=== PATIENT | female | born 1945 | race Caucasian/White ===

== ENCOUNTER 2022-09-24 06:06 | Day surgery (SDC) | payer MEDICARE, SELFPAY ==
[2022-09-24 06:40] VITALS: BP 156/76; PULSE 86; RESP 16; TEMP 36.6; O2SAT 99
[2022-09-24] MEDS: Tropicam./Phenyleph. (1/2.5%) 5 ML BTL OS ×3 (06:52→07:03)
--- NOTE | 2022-09-24 07:04 | ANES.PREOP_ITS ---
General Info Date of Service Date Performed: 09/24/22 Height: 5 ft 1 in Weight: 49.5 kg Body Mass Index (BMI): 20.6 Surgical Procedure: Operation Date: 09/24/22 07:40 Proposed Procedure Side Surgeon p Cataract Extraction with IOL Implant Left Omer Lacy MD Meds Allergies and Home Medications Allergies Allergy/AdvReac Type Severity Reaction Status Date / Time No Known Allergies Allergy Unverified 09/24/22 06:47 Home Medication Medication Instructions Recorded acetaminophen 650 mg 1,300 mg PO Q8H PRN 09/21/22 tablet,extended release amlodipine 10 mg tablet 10 mg PO DAILY 09/21/22 latanoprost 0.005 % eye drops 1 drp ophthalmic (eye) HS 09/21/22 multivitamin 1 tab PO DAILY 09/21/22 red yeast rice 600 mg capsule 600 mg PO DAILY 09/21/22 Current Visit Medications: Current Medications Generic Name Dose Route Start Last Admin Trade Name Freq PRN Reason Stop Dose Admin Acetaminophen 1,000 mg 09/24/22 06:00 Acetaminophen 500 Mg Tab PO Q4H PRN PRN Miscellaneous Medication 0 ml 09/24/22 06:00 09/24/22 07:03 Tropicam./Phenyleph. (1/2.5%) 5 Ml Btl OS 1 drp DIRECTED SOLEDAD Administration Miscellaneous Medication 0 ml 09/24/22 06:00 Prednisolone 1%, Moxifloxacin 0.5%, Nepafenac 0.1% 5ml Btl OS DIRECTED SOLEDAD Tetracaine HCl 0 ml 09/24/22 06:00 Tetracaine 0.5% 4 Ml Btl OS DIRECTED SOLEDAD PFSH Active Problems Active Problems: Problem Status Onset Code Nuclear sclerotic cataract of left eye H25.12 Medical History Medical History (Updated 09/24/22 @ 06:47 by Isabel Felipe) Benign essential hypertension Edentulism Hx of glaucoma Raynauds disease Traumatic amputation of finger Surgical History Surgical History History of lumbosacral spine surgery History of mandibular surgery Per H&P related to gingivitis Hx of appendectomy Hx of hernia repair Hx of hysterectomy Tobacco Smoking/Tobacco Use Status: Former Tobacco Use Alcohol Alcohol Intake: current Alcohol type: wine Substance Use Substance use: Never Substance use type: does not use Vital Signs and Lab Results Vital Signs Most Recent Vital Signs in EMR: Most Recent Vital Signs Temp Pulse Resp BP Pulse Ox 36.6 C 86 16 156/76 H 99 09/24/22 06:40 09/24/22 06:40 09/24/22 06:40 09/24/22 06:40 09/24/22 06:40 Lab Results Blood Type / Crossmatch: No Data to Display Complete Blood Count: No Data to Display Complete Metabolic Panel: 2 No Data to Display Liver Function Panel: No Data to Display Coagulation Panel: No Data to Display Cardiac Panel: No Data to Display Arterial Blood Gas: No Data to Display Venous Blood Gas: No Data to Display Pancreas Panel: No Data to Display Thyroid Panel: No Data to Display Infectious Disease: No Data to Display Blood Cultures: No Data to Display Toxicology Panel: No Data to Display Anesthesia Assessment and Plan Anesthesia History Personal History: No History of Anesthesia Complications Family History: No Family History of Anesthesia Complications Exercise Tolerance Exercise Tolerance: Metabolic Equivalents>4 Pertinent Negatives Pertinent Negatives: No Symptoms of GERD, No Major Cardiovascular Symptoms or Complaints and No Major Pulmonary Symptoms or Complaints Cardiac & Pulmonary Exam Cardiac Exam: Normal S1/S2 Heart Sounds Pulmonary Exam: Clear Bilateral Breath Sounds Implantable Cardiac Device Does patient have a Pacemaker or an ICD?: No Airway Exam Known Difficult Airway: No Mallampati Class: 2 Mouth Opening: Normal (> 3cm) Thyromental Distance: Greater than 3 cm Neck Range of Motion: Full ROM Neck Circumference: Normal Teeth Condition: Removable Dentures/Plates Upper and Removable Dentures/Plates Lower ASA Classification ASA Score: ASA 2 Emergency Case?: No NPO Status NPO Status: NPO Clears >2 hours, Solids >8 hours Anesthesia Plan Resuscitation Status: Full Code Anesthesia Technique: MAC Anesthesia Airway Planned: Natural Airway Monitors Used: Standard Monitors
[2022-09-24 07:06] VITALS: BMI 20.6
[2022-09-24] MEDS: Tetracaine 0.5% 4 ML BTL OS (07:28)
[2022-09-24] MEDS: Lidocaine 1% Pres-Free 5 ML VIAL (07:36)
[2022-09-24] MEDS: Balanced Salt Soln.-PLUS 500 ML BAG (07:37)
[2022-09-24] MEDS: Phenylephrine/Lidocaine (15/10) MG/ML 1 ML VIAL (07:38)
[2022-09-24] MEDS: Povidone-Iodine Ophth 30 ML BTL (07:38)
[2022-09-24] MEDS: Duovisc Viscoelastic System EACH 1 EACH (07:39)
[2022-09-24 08:05] VITALS: BP 131/82; PULSE 85; RESP 18; TEMP 36.6; O2SAT 93
--- NOTE | 2022-09-24 08:13 | W.PM.DSUDISC ---
Date of service: 09/24/22 Time of Service: 08:13 Discharge Plan Disposition Patient Disposition: Home Discharge Details Attending Provider: Omer Lacy Primary Care Provider: Soheila Law Home Meds and New Rx's Prescriptions: No Action multivitamin Tablet 1 tab PO DAILY latanoprost 0.005 % Drops 1 drp ophthalmic (eye) HS acetaminophen 650 mg Tablet Extended Release 1,300 mg PO Q8H PRN amlodipine 10 mg Tablet 10 mg PO DAILY red yeast rice 600 mg Capsule 600 mg PO DAILY Discharge Instructions Stand Alone Forms: Post-op Topical Cataract, Josef Acunaey (DSU) Discharge Orders Discharge Orders: Discharge Order (Routine); Ordered 09/24/22 Ordered By: Omer Lacy DS: Diagnosis Discharge Diagnosis (1) Nuclear sclerotic cataract of left eye: Status: Resolved (2) Primary open angle glaucoma (POAG) of left eye, mild stage: Status: Chronic
--- NOTE | 2022-09-24 08:15 | W.PM.OP ---
Date of service: 09/24/22 Time of Service: 08:15 Operative Note Operative Note DATE OF PROCEDURE: 09/24/22 PRE-OP DIAGNOSIS: Nuclear cataract, left eye Primary open-angle glaucoma, left eye, mild stage PROCEDURE: 1. Cataract extraction using phacoemulsification with intraocular lens implant, left eye 2. Insertion of multiple anterior segment aqueous drainage devices (Glaukos iStent inject x 2) into trabecular meshwork, left eye SURGEON: Omer Lacy ANESTHESIA TYPE: Local By Surgeon and MAC Refer to Anesthesia Record ESTIMATED BLOOD LOSS: 0 PATHOLOGY: none sent COMPLICATIONS: None Patient was transported to: same day Patient's condition: stable Implants: 1. Edin and Edin Vision Tecnis Eyhance intraocular lens 2. Glaukos iStent inject trabecular micro-bypass stent x 2 Indications: 1. Progressive decreased vision due to cataract, left eye 2. Primary open angle glaucoma, left eye Procedure Description: CATARACT SURGERY OPERATIVE REPORT PREOPERATIVE DIAGNOSIS: Nuclear cataract, left eye primary open-angle glaucoma, left eye, mild stage POSTOPERATIVE DIAGNOSIS: Same OPERATION: 1. Cataract extraction using phacoemulsification with posterior chamber intraocular lens implant, left eye. 2. Insertion of multiple anterior segment aqueous drainage devices (Glaukos iStent inject x 2) into trabecular meshwork, left eye IOL: IOL Healthcare Science Specialist/Model: [employer]Safe Shepherd / JAYLON Tecnis [id number] IOL Power: + 22.5 diopters IOL Serial Number: [id number] Optic Diameter: 6.0mm Haptic/Overall Diameter: 13.0mm PHACO INFO: Lion Ziarcourion Vision System with OZil and Active Fluidics Cumulative Dispersed Energy (CDE): 17.87 seconds TRABECULAR MICRO-BYPASS STENT INFO: Glaukos iStent inject x 2 Reference Number: [id number] Serial Number: [id number] SURGEON: Omer Lacy MD, EDEL ANESTHESIA: Monitored Anesthesia Care (MAC), with local sub-tenon's anesthetic infiltration COMPLICATIONS: None SPECIMENS: None INDICATIONS FOR PROCEDURE: The patient is a 77-year-old lady with history of mild stage primary open-angle glaucoma who has developed asymptomatic dense nuclear cataract in the left eye. The option of cataract surgery was offered to the patient and she wished to proceed. PROCEDURE: The correct surgical eye was identified and marked as the left eye and the pupil was dilated in the preoperative area using mydriatics and cycloplegics. The dilated pupil size was 7.0 mm. Oral sedation was administered in the form of one half of an Imprimis MKO Melt (midazolam 3mg/ketamine 25mg/ondansetron 2mg). The patient was brought to the operating room where cardiopulmonary monitoring was instituted and surgical time-out was performed, confirming the correct operative eye and IOL power. Topical anesthesia was administered and ophthalmic povidone-iodine 5% was instilled into the conjunctival fornices. Lidocaine gel was applied to the cornea and the luli-ocular area was prepped with Betadine 10% solution and draped in the usual sterile fashion for intraocular surgery, including an aperture drape. A Tegaderm transparent film dressing was cut in half and used to cover the lashes and lid margins. Care was taken to sequester the lashes and lid margins under the Tegaderm dressing. A lid speculum was placed between the lids of the operative eye and the Lion LuxOR Revalia operating microscope was maneuvered into position. Miguel scissors were then used to make a conjunctival buttonhole approximately 6mm posterior to the limbus in the inferonasal quadrant. Blunt dissection was carried out to expose bare sclera, and a blunt-tipped sub-tenon?s anesthesia cannula was introduced and passed posteriorly along the globe where non-preserved plain lidocaine was injected into posterior sub-Tenon?s space. A sideport knife was used to make a paracentesis port superior/superiortemporally. Intraocular phenylephrine/lidocaine was injected into the anterior chamber. The anterior chamber was then filled with viscoelastic. A 2.4mm keratome knife was used to create a half-thickness groove at the limbus and then to construct a three-plane near-clear corneal tunnel extending 2.0mm into clear cornea in the temporal position. . A flap was raised on the anterior capsule and capsulorhexis forceps were used to complete a continuous curvilinear capsulorhexis of 5.0 mm. Balanced salt solution was then used to perform cortical cleaving hydrodissection and nuclear hydrodelineation until the lens could be freely rotated within the capsular bag. The lens nucleus was then disassembled and removed within the capsular bag and iris plane using phacoemulsification. Residual cortical material was removed using the 45-degree angled silicone I/A tip with 0.3mm port. The posterior capsule was carefully polished to remove as much residual lens epithelial cells as safely possible. The capsular bag was then inflated and the anterior chamber deepened with viscoelastic. The lens implant described above was inserted into the capsular bag using the Edin and Edin Simplicity Injector. A Kuglen hook was used to dial the IOL into position. The anterior chamber was then slightly over-filled with viscoelastic. The microsope and the patient's head were tilted into the ideal position for viewing of the anterior chamber angle. Viscoelastic was placed on the cornea followed by a surgical gonionlens, and the anterior chamber angle landmarks were identified. The SmartSynch iStent inject handpiece was introduced into the anterior chamber and the insertion sleeve was retracted once the injector was distal to the pupillary margin. The trocar was advanced through the central portion of the trabecular meshwork and into the back wall of Schlemm's canal in the superiornasal quadrant, with care taken to ensure the micro-insertion tube was perpendicular to the trabecular meshwork. The trabecular meshwork was lightly dimpled and the stent was injected without difficulty. The same procedure was then performed in the inferiornasal quradrant. Both stents were then examined and noted to be in good position within the trabecular meshwork. A mild amount of blood reflux was present through both stent apertures. The microscope and the patients head were returned to the normal coaxial position. Viscoelatic was then removed from the anterior chamber using the I/A handpiece. The lens implant was noted to center nicely within the capsular bag. The incisions were stromally hydrated, and the anterior chamber was reformed using BSS. Then 0.5cc of moxifloxacin 1.0mg/ml were injected into the capsular bag and anterior chamber. The incisions were checked with a Weck spear and found to be secure. Several drops of ophthalmic povidone-iodine 5% were then applied to the eye followed by two drops of Imprimis combination prednisolone/moxifloxacin/nepafenac solution. The drapes were removed and a clear plastic protective eye shield was placed over the eye. The patient was then returned to [facility] Day Surgery in stable condition.
[2022-09-24] MEDS: Acetaminophen 500 MG TAB 1000 MG PO (08:16)
--- NOTE | 2022-09-24 08:17 | W.ANESPOSTOP ---
Postoperative Evaluation Date, Time and Location Date Performed: 09/24/22 Time Performed: 08:10 Patient Location: Day Surgery Unit Vital Signs Most Recent Imported Vital Signs: Most Recent Vital Signs Temp Pulse Resp BP Pulse Ox 36.6 C 85 18 131/82 93 09/24/22 08:05 09/24/22 08:05 09/24/22 08:05 09/24/22 08:05 09/24/22 08:05 Pain Score Most Recent Pain Score: Most Recent Pain Score Pain Level 0 09/24/22 08:05 Assessment Mental Status: Awake (Alert & Oriented to Patient Baseline) Airway and Respiratory Function: Patent airway with normal (patient baseline) respiratory exam Cardiovascular Function: Hemodynamically Stable Hydration Status: Adequately Hydrated Nausea & Vomiting: No Nausea or Vomiting Pain: Pt. Denies Any Pain Peripheral Nerve Block: Patient did not receive a nerve block
[2022-09-24 08:31] VITALS: BP 113/67; PULSE 79; RESP 18; TEMP 36.6; O2SAT 94
== END 2022-09-24 08:41 | disposition home or self-care (01) ==
LOC: SUR 06:07
PROVIDERS: PCP Nurse Practitioner Family; Visit Provider Ophthalmology
PROC: (CPT 66991; principal; 2022-09-24 07:30)
DX: H25.12 Age-related nuclear cataract, left eye (principal); H40.1121 Primary open-angle glaucoma, left eye, mild stage
CPT/HCPCS: 66991; V2632; C1783

== ENCOUNTER 2022-10-08 10:36 | Day surgery (SDC) | payer MEDICARE, SELFPAY ==
[2022-10-08 11:56] VITALS: BP 166/75; PULSE 65; RESP 16; TEMP 36.2; O2SAT 98
[2022-10-08] MEDS: Tropicam./Phenyleph. (1/2.5%) 5 ML BTL OD ×3 (12:13→12:23)
[2022-10-08 12:39] VITALS: BMI 20.7
--- NOTE | 2022-10-08 12:39 | W.ANESPRE ---
General Info Date of Service Date Performed: 10/08/22 Height: 5 ft 1 in Weight: 49.8 kg Body Mass Index (BMI): 20.7 Surgical Procedure: Operation Date: 10/08/22 14:40 Proposed Procedure Side Surgeon p Cataract Extraction with IOL Implant w/Glaucoma Stent Right Omer Lacy MD Meds Allergies and Home Medications Allergies Allergy/AdvReac Type Severity Reaction Status Date / Time No Known Allergies Allergy Unverified 10/08/22 11:51 Home Medication Medication Instructions Recorded acetaminophen 650 mg 1,300 mg PO Q8H PRN 09/21/22 tablet,extended release amlodipine 10 mg tablet 10 mg PO DAILY 09/21/22 latanoprost 0.005 % eye drops 1 drp ophthalmic (eye) HS 09/21/22 multivitamin 1 tab PO DAILY 09/21/22 red yeast rice 600 mg capsule 600 mg PO DAILY 09/21/22 Current Visit Medications: Current Medications Generic Name Dose Route Start Last Admin Trade Name Freq PRN Reason Stop Dose Admin Acetaminophen 1,000 mg 10/08/22 06:30 Acetaminophen 500 Mg Tab PO Q4H PRN PRN Miscellaneous Medication 0 ml 10/08/22 06:30 Prednisolone 1%, Moxifloxacin 0.5%, Nepafenac 0.1% 5ml Btl OD DIRECTED SOLEDAD Miscellaneous Medication 0 ml 10/08/22 06:30 10/08/22 12:23 Tropicam./Phenyleph. (1/2.5%) 5 Ml Btl OD 1 drp DIRECTED SOLEDAD Administration Tetracaine HCl 0 ml 10/08/22 06:30 Tetracaine 0.5% 4 Ml Btl OD DIRECTED SOLEDAD PFSH Active Problems Active Problems: Problem Status Onset Code Primary open angle glaucoma (POAG) of right eye, mild stage H40.1111 Nuclear age-related cataract, right eye H25.11 Primary open angle glaucoma (POAG) of left eye, mild stage H40.1121 Nuclear sclerotic cataract of left eye H25.12 Medical History Medical History Benign essential hypertension Edentulism Hx of glaucoma Raynauds disease Traumatic amputation of finger Surgical History Surgical History History of lumbosacral spine surgery History of mandibular surgery Per H&P related to gingivitis Hx of appendectomy Hx of hernia repair Hx of hysterectomy Tobacco Smoking/Tobacco Use Status: Former Tobacco Use Alcohol Alcohol Intake: current Alcohol intake frequency: 0-2 drinks per day Alcohol type: wine Substance Use Substance use: Never Substance use type: does not use Details: glass of wine last night, 10/07/22 Vital Signs and Lab Results Vital Signs Most Recent Vital Signs in EMR: Most Recent Vital Signs Temp Pulse Resp BP Pulse Ox 36.2 C L 65 16 166/75 H 98 10/08/22 11:56 10/08/22 11:56 10/08/22 11:56 10/08/22 11:56 10/08/22 11:56 Lab Results Blood Type / Crossmatch: No Data to Display Complete Blood Count: No Data to Display Complete Metabolic Panel: No Data to Display Liver Function Panel: No Data to Display Coagulation Panel: No Data to Display Cardiac Panel: No Data to Display Arterial Blood Gas: No Data to Display Venous Blood Gas: No Data to Display Pancreas Panel: No Data to Display Thyroid Panel: No Data to Display Infectious Disease: No Data to Display Blood Cultures: No Data to Display Toxicology Panel: No Data to Display Anesthesia Assessment and Plan Anesthesia History Personal History: No History of Anesthesia Complications Family History: No Family History of Anesthesia Complications Exercise Tolerance Exercise Tolerance: Metabolic Equivalents>4 Pertinent Negatives Pertinent Negatives: No Symptoms of GERD, No Major Cardiovascular Symptoms or Complaints, No Major Pulmonary Symptoms or Complaints and No History of CVA/TIA Cardiac & Pulmonary Exam Cardiac Exam: Normal S1/S2 Heart Sounds Pulmonary Exam: Clear Bilateral Breath Sounds Implantable Cardiac Device Does patient have a Pacemaker or an ICD?: No Airway Exam Known Difficult Airway: No Mallampati Class: 2 Mouth Opening: Normal (> 3cm) Thyromental Distance: Greater than 3 cm Neck Range of Motion: Full ROM Neck Circumference: Normal Teeth Condition: Removable Dentures/Plates Upper and Removable Dentures/Plates Lower ASA Classification ASA Score: ASA 3 Emergency Case?: No NPO Status NPO Status: NPO Clears >2 hours, Solids >8 hours Anesthesia Plan Resuscitation Status: Full Code Anesthesia Technique: MAC Anesthesia Airway Planned: Natural Airway Monitors Used: Standard Monitors
[2022-10-08] MEDS: Tetracaine 0.5% 4 ML BTL OD (12:48)
[2022-10-08] MEDS: Duovisc Viscoelastic System EACH 1 EACH (12:58)
[2022-10-08] MEDS: Balanced Salt Soln.-PLUS 500 ML BAG (12:58)
[2022-10-08] MEDS: Povidone-Iodine Ophth 30 ML BTL (13:00)
[2022-10-08] MEDS: Phenylephrine/Lidocaine (15/10) MG/ML 1 ML VIAL (13:00)
[2022-10-08 13:28] VITALS: BP 126/75; PULSE 80; RESP 16; TEMP 36.3; O2SAT 94
--- NOTE | 2022-10-08 13:29 | W.PM.DSUDISC ---
Date of service: 10/08/22 Time of Service: 13:29 Discharge Plan Disposition Patient Disposition: Home Discharge Details Attending Provider: Omer Lacy Primary Care Provider: Soheila Law Home Meds and New Rx's Prescriptions: No Action multivitamin Tablet 1 tab PO DAILY latanoprost 0.005 % Drops 1 drp ophthalmic (eye) HS acetaminophen 650 mg Tablet Extended Release 1,300 mg PO Q8H PRN amlodipine 10 mg Tablet 10 mg PO DAILY red yeast rice 600 mg Capsule 600 mg PO DAILY Discharge Instructions Stand Alone Forms: Post-op Topical Cataract, Josef Acunaey ([facility]) Discharge Orders Discharge Orders: Discharge Order (Routine); Ordered 10/08/22 Ordered By: Omer Lacy DS: Diagnosis Discharge Diagnosis (1) Nuclear age-related cataract, right eye: Status: Resolved (2) Primary open angle glaucoma (POAG) of right eye, mild stage: Status: Resolved
--- NOTE | 2022-10-08 13:33 | ROE_ITS ---
Date of service: 10/08/22 Time of Service: 13:33 Operative Note Operative Note DATE OF PROCEDURE: 10/08/22 PRE-OP DIAGNOSIS: Nuclear cataract, right eye Primary open-angle glaucoma, right eye, mild stage POST-OP DIAGNOSIS: same PROCEDURE: 1. Cataract extraction using phacoemulsification with intraocular lens implant, right eye 2. Insertion of multiple anterior segment aqueous drainage devices (Glaukos iStent inject x 2) into trabecular meshwork, right eye SURGEON: Omer Lacy ANESTHESIA TYPE: Local By Surgeon and MAC Refer to Anesthesia Record PATHOLOGY: none sent COMPLICATIONS: None Patient was transported to: same day Patient's condition: stable Implants: 1. [employer] / [employer] Tecnis Eyhance DIB00 intraocular lens 2. Glaukos iStent inject trabecular micro-bypass stent x 2 Indications: 1. Progressive decreased vision due to cataract, right eye 2. Primary open angle glaucoma, right eye Procedure Description: CATARACT SURGERY OPERATIVE REPORT PREOPERATIVE DIAGNOSIS: Nuclear cataract, right eye Primary open-angle glaucoma, right eye, mild stage POSTOPERATIVE DIAGNOSIS: Same OPERATION: 1. Cataract extraction using phacoemulsification with posterior chamber intraocular lens implant, right eye. 2. Insertion of multiple anterior segment aqueous drainage devices (Glaukos iStent inject x 2) into trabecular meshwork, right eye IOL: IOL Casing Finisher And Stuffer/Model: [employer]J Vision / JAYLON Tecnis Eyhance DIB00 IOL Power: + 23.0 diopters IOL Serial Number: [id number] Optic Diameter: 6.0mm Haptic/Overall Diameter: 13.0mm PHACO INFO: Lion [employer] Vision System with OZil and Active Fluidics Cumulative Dispersed Energy (CDE): 6.06 seconds TRABECULAR MICRO-BYPASS STENT INFO: Glaukos iStent inject x 2 Reference Number: [id number] Serial Number: [id number] SURGEON: Omer Lacy MD, EDEL ANESTHESIA: Monitored Anesthesia Care (MAC), with local sub-tenon's anesthetic infiltration COMPLICATIONS: None SPECIMENS: None INDICATIONS FOR PROCEDURE: The patient is a 77-year-old lady with history of diminished visual acuity in both eyes second. Secondary to the development of bilateral nuclear cataract. She also has a history of primary open-angle glaucoma, mild stage, controlled on 1 topical medication. She has already undergone cataract surgery in the left ey e with glaucoma stent. She is doing well postoperatively. She now presents for cataract surgery in the right eye with glaucoma stent procedure as well. PROCEDURE: The correct surgical eye was identified and marked as the right eye and the pupil was dilated in the preoperative area using mydriatics and cycloplegics. The dilated pupil size was 6.0 mm. Oral sedation was administered in the form of an Imprimis MKO Melt (midazolam 3mg/ketamine 25mg/ondansetron 2mg). . The patient was brought to the operating room where cardiopulmonary monitoring was instituted and surgical time-out was performed, confirming the correct operative eye and IOL power. Topical anesthesia was administered and ophthalmic povidone-iodine 5% was instilled into the conjunctival fornices. Lidocaine gel was applied to the cornea and the luli-ocular area was prepped with Betadine 10% solution and draped in the usual sterile fashion for intraocular surgery, including an aperture drape. A Tegaderm transparent film dressing was cut in half and used to cover the lashes and lid margins. Care was taken to sequester the lashes and lid margins under the Tegaderm dressing. A lid speculum was placed between the lids of the operative eye and the Lion [employer] Rev[employer] operating microscope was maneuvered into position. Miguel scissors were then used to make a conjunctival buttonhole approximately 6mm posterior to the limbus in the inferonasal quadrant. Blunt dissection was carried out to expose bare sclera, and a blunt-tipped sub-tenon?s anesthesia cannula was introduced and passed posteriorly along the globe where non- preserved plain lidocaine was injected into posterior sub-Tenon?s space. A sideport knife was used to make a paracentesis port inferiortemporally. Intraocular phenylephrine/lidocaine was injected into the anterior chamber. The anterior chamber was then filled with viscoelastic. A 2.4mm keratome knife was used to construct a 2-plane near-clear corneal tunnel extending 2.0mm into clear cornea superiortemporally. . A flap was raised on the anterior capsule and capsulorhexis forceps were used to complete a continuous curvilinear capsulorhexis of 5.0 mm. Balanced salt solution was then used to perform cortical cleaving hydrodissection and nuclear hydrodelineation until the lens could be freely rotated within the capsular bag. The lens nucleus was then disassembled and removed within the capsular bag and iris plane using phacoemulsification. Residual cortical material was removed using the 45-degree angled silicone I/A tip with 0.3mm port. The posterior capsule was carefully polished to remove as much residual lens epithelial cells as safely possible. The capsular bag was then inflated and the anterior chamber deepened with viscoelastic. The lens implant described above was inserted into the capsular bag using the JAYLON [place] Injector. A Kuglen hook was used to dial the IOL into position. The anterior chamber was then slightly over-filled with viscoelastic. The microsope and the patient's head were tilted into the ideal position for viewing of the anterior chamber angle. Viscoelastic was placed on the cornea followed by a surgical gonionlens, and the anterior chamber angle landmarks were identified. The GOPOP.TV iStent inject handpiece was introduced into the anterior chamber and the insertion sleeve was retracted once the injector was distal to the pupillary margin. The trocar was advanced through the central portion of the trabecular meshwork and into the back wall of Schlemm's canal in the inferonasal quadrant, with care taken to ensure the micro-insertion tube was perpendicular to the trabecular meshwork. The trabecular meshwork was lightly dimpled and the stent was injected without difficulty. The same procedure was then performed in the superiornasal quadrant. Both stents were then examined and noted to be in good position within the trabecular meshwork. The microscope and the patients head were returned to the normal coaxial position. Viscoelatic was then removed from the anterior chamber using the I/A handpiece. The lens implant was noted to center nicely within the capsular bag. The incisions were stromally hydrated, and the anterior chamber was reformed using BSS. Then 0.5cc of moxifloxacin 1.0mg/ml were injected into the capsular bag and anterior chamber. The incisions were checked with a Weck spear and found to be secure. Several drops of ophthalmic povidone-iodine 5% were then applied to the eye followed by two drops of Imprimis combination prednisolone/moxifloxaci n/nepafenac solution. The drapes were removed and a clear plastic protective eye shield was placed over the eye. The patient was then returned to Same Day Surgery in stable condition.
--- NOTE | 2022-10-08 13:33 | W.PM.DSUDISC ---
Date of service: 10/08/22 Time of Service: 13:33 Discharge Plan Disposition Patient Disposition: Home Discharge Details Attending Provider: Omer Lacy Primary Care Provider: Soheila Law Home Meds and New Rx's Prescriptions: No Action multivitamin Tablet 1 tab PO DAILY latanoprost 0.005 % Drops 1 drp ophthalmic (eye) HS acetaminophen 650 mg Tablet Extended Release 1,300 mg PO Q8H PRN amlodipine 10 mg Tablet 10 mg PO DAILY red yeast rice 600 mg Capsule 600 mg PO DAILY Discharge Instructions Stand Alone Forms: Post-op Topical Cataract, Josef Acunaey (DSU) Discharge Orders Discharge Orders: Discharge Order (Routine); Ordered 10/08/22 Ordered By: Omer Lacy DS: Diagnosis Discharge Diagnosis (1) Nuclear age-related cataract, right eye: Status: Resolved (2) Primary open angle glaucoma (POAG) of right eye, mild stage: Status: Resolved
[2022-10-08 14:05] VITALS: BP 117/65; PULSE 77; RESP 16; TEMP 36.1; O2SAT 95
--- NOTE | 2022-10-08 14:07 | W.ANESPOSTOP ---
Postoperative Evaluation Date, Time and Location Date Performed: 10/08/22 Time Performed: 13:28 Patient Location: Day Surgery Unit Vital Signs Most Recent Imported Vital Signs: Most Recent Vital Signs Temp Pulse Resp BP Pulse Ox 36.3 C L 80 16 126/75 94 10/08/22 13:28 10/08/22 13:28 10/08/22 13:28 10/08/22 13:28 10/08/22 13:28 Pain Score Most Recent Pain Score: Most Recent Pain Score Pain Level 0 10/08/22 13:28 Assessment Mental Status: Awake (Alert & Oriented to Patient Baseline) Airway and Respiratory Function: Patent airway with normal (patient baseline) respiratory exam Cardiovascular Function: Hemodynamically Stable Hydration Status: Adequately Hydrated Nausea & Vomiting: No Nausea or Vomiting Pain: Pt. Denies Any Pain Peripheral Nerve Block: Patient did not receive a nerve block
== END 2022-10-08 14:15 | disposition home or self-care (01) ==
LOC: SUR 10:36
PROVIDERS: PCP Nurse Practitioner Family; Visit Provider Ophthalmology
PROC: (CPT 66991; principal; 2022-10-08 14:30)
DX: H25.11 Age-related nuclear cataract, right eye (principal); H40.1111 Primary open-angle glaucoma, right eye, mild stage; Z98.42 Cataract extraction status, left eye; I10 Essential (primary) hypertension
CPT/HCPCS: 66991; V2632; C1783